=== PATIENT | female | born 1990 | race African-American/Black ===

== ENCOUNTER 2017-12-04 07:37 | Emergency (ER) | payer SELFPAY ==
[~2017-12-04] VITALS: Ht 175.3 cm; Wt 101.0 kg
[~2017-12-04 07:37] MED LIST: Z.0.BCPILL PO
[2017-12-04 07:39] VITALS: BP 128/58; PULSE 73; RESP 16; TEMP 98; O2SAT 100
[2017-12-04] MEDS ORDERED: DEPO150I IM (07:53)
[2017-12-04 08:03] LABS: BILIRUBIN, URINE NEG (NEG); BLOOD, URINE NEG (NEG); GLUCOSE,URINE NEG (NEG); KETONE, URINE NEG (NEG); NITRITE,URINE NEG (NEG); PH, URINE 6.5 (5.0-8.5); URINE COLOR YELLOW (YELLW/STRAW); URINE LEUKOCYTE ESTERASE LARGE (NEG)
[2017-12-04 08:11] LABS: BACTERIA, URINE RARE /hpf; TRICHOMONAS, URINE FEW
[2017-12-04 08:33] LABS: AUTOMATED NEUTROPHIL # 5.5 TH/MM3 (1.8-7.7); BASOPHIL # 0.1 TH/MM3 (0-0.2); BASOPHIL % 0.8 % (0.0-2.0); EOSINOPHIL # 0.1 TH/MM3 (0-0.4); EOSINOPHIL % 0.7 % (0.0-4.0); HEMATOCRIT 28.4 % (35.0-46.0); HEMOGLOBIN 9.7 GM/DL (11.6-15.3); LYMPH % 18.4 % (9.0-44.0); LYMPHOCYTE # 1.4 TH/MM3 (1.0-4.8); MEAN CELL VOLUME 83.8 FL (80.0-100.0); MEAN CORPUSCULAR HEMOGLOBIN 28.7 PG (27.0-34.0); MEAN CORPUSCULAR HGB CONC 34.3 % (32.0-36.0); MEAN PLATELET VOLUME 7.6 FL (7.0-11.0); MONO % 6.9 % (0.0-8.0); MONOCYTE # 0.5 TH/MM3 (0-0.9); NEUT % 73.2 % (16.0-70.0); PLATELET COUNT 296 TH/MM3 (150-450); RED BLOOD COUNT 3.39 MIL/MM3 (4.00-5.30); RED CELL DISTRIBUTION WIDTH 14.2 % (11.6-17.2); WHITE BLOOD COUNT 7.6 TH/MM3 (4.0-11.0)
[2017-12-04 08:45] LABS: CHLORIDE 107 MEQ/L (98-107); SODIUM (NA) 138 MEQ/L (136-145)
[2017-12-04 08:49] LABS: ALBUMIN 3.5 GM/DL (3.4-5.0); BICARBONATE 23.6 MEQ/L (21.0-32.0); CALCIUM 8.8 MG/DL (8.5-10.1); GLUCOSE,RANDOM 110 MG/DL (74-106)
[2017-12-04 08:50] LABS: BLOOD UREA NITROGEN 12 MG/DL (7-18)
[2017-12-04 08:52] LABS: ALT (GPT) 21 U/L (10-53)
[2017-12-04 08:53] LABS: AST (GOT) 16 U/L (15-37); CREATININE 0.72 MG/DL (0.50-1.00); GLOMERULAR FILTRATION RATE 118 ML/MIN (>89)
[2017-12-04 08:54] LABS: TOTAL BILIRUBIN ADULT 0.5 MG/DL (0.2-1.0)
[2017-12-04 08:55] LABS: ALKALINE PHOSPHATASE 55 U/L (45-117)
[2017-12-04] MEDS ORDERED: cefTRIAXone INJ 1,000 MG in SODIUM CHLORIDE 0.9% INJ 100 ML IV ONE (09:15)
[2017-12-04] MEDS ORDERED: METR-1 PO (11:48)
[2017-12-04] MEDS ORDERED: DOXY100C PO (11:48)
--- NOTE | 2017-12-04 11:49 | PD ---
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 She has been having the pain for several days. She has noted some vaginal discharge and odor. She is quite sure she is not . There is been no vomiting or diarrhea. She is generally healthy. PFSH Past Medical History Diabetes: Yes (gestational) Patient Takes Glucophage: No Diminished Hearing: No Immunizations Current: Yes Tetanus Vaccination: Unknown ?: Not LMP: on depo : 1 Para: 1 Social History Alcohol Use: No Tobacco Use: No Substance Use: No Allergies-Medications (Allergen,Severity, Reaction): Coded Allergies: No Known Allergies (Verified Adverse Reaction, Unknown, 12/04/17) Reported Meds & Prescriptions Reported Meds & Active Scripts Active Reported Depo-Provera Inj (Medroxyprogesterone Inj) 150 Mg/Ml Inj 150 Mg IM Q90D Review of Systems General / Constitutional: No: Fever, Chills Eyes: No: Diploplia HENT: No: Headaches, Vertigo Cardiovascular: No: Chest Pain or Discomfort, Palpitations Respiratory: No: Cough, Shortness of Breath Gastrointestinal: Positive: Abdominal Pain, No: Vomiting, Diarrhea Genitourinary: Positive: Discharge Musculoskeletal: No: Myalgias, Arthralgias Skin: No Rash Physical Exam Narrative GENERAL: Well-developed female SKIN: Focused skin assessment warm/dry. HEAD: Atraumatic. Normocephalic. EYES: Pupils equal and round. No scleral icterus. No injection or drainage. ENT: No nasal bleeding or discharge. Mucous membranes pink and moist. NECK: Trachea midline. No JVD. CARDIOVASCULAR: Regular rate and rhythm. No murmur appreciated. RESPIRATORY: No accessory muscle use. Clear to auscultation. Breath sounds equal bilaterally. GASTROINTESTINAL: Abdomen soft, non-tender, nondistended. Hepatic and splenic margins not palpable. Pelvic exam there is moderate amount of whitish vaginal discharge. There is pain with movement of the cervix and bilateral adnexal tenderness MUSCULOSKELETAL: No obvious deformities. No clubbing. No cyanosis. No edema. NEUROLOGICAL: Awake and alert. No obvious cranial nerve deficits. Motor grossly within normal limits. Normal speech. PSYCHIATRIC: Appropriate mood and affect; insight and judgment normal. Data Data Last Documented VS Vital Signs Date Time Temp Pulse Resp B/P (MAP) Pulse Ox O2 Delivery O2 Flow Rate FiO2 12/04/17 07:39 98.0 73 16 128/58 (81) 100 Orders Orders Urinalysis - C+S If Indicated (12/04/17 07:46) Ed Urine Pregnancytest Poc (12/04/17 07:46) Complete Blood Count With Diff (12/04/17 08:00) Comprehensive Metabolic Panel (12/04/17 08:00) Gc And Chlamydia Pcr (12/04/17 08:00) Wet Prep Profile (12/04/17 08:00) Ceftriaxone Inj (Rocephin Inj) (12/04/17 09:15) Urine Culture (12/04/17 07:50) Labs Laboratory Tests Test 12/04/17 07:50 12/04/17 08:13 12/04/17 08:50 Urine Collection Type VOIDED Urine Color YELLOW Urine Turbidity CLEAR Urine pH 6.5 Urine Specific [place] 1.020 Urine Protein NEG mg/dL Urine Glucose (UA) NEG mg/dL Urine Ketones NEG mg/dL Urine Occult Blood NEG Urine Nitrite NEG Urine Bilirubin NEG Urine Urobilinogen 0.2 MG/DL Urine Leukocyte Esterase LARGE Urine WBC 9-14 /hpf Urine Squamous Epithelial Cells 2-4 /hpf Urine Bacteria RARE /hpf Urine Trichomonas FEW Microscopic Urinalysis Comment CULTURE INDICATED White Blood Count 7.6 TH/MM3 Red Blood Count 3.39 MIL/MM3 Hemoglobin 9.7 GM/DL Hematocrit 28.4 % Mean Corpuscular Volume 83.8 FL Mean Corpuscular Hemoglobin 28.7 PG Mean Corpuscular Hemoglobin Concent 34.3 % Red Cell Distribution Width 14.2 % Platelet Count 296 TH/MM3 Mean Platelet Volume 7.6 FL Neutrophils (%) (Auto) 73.2 % Lymphocytes (%) (Auto) 18.4 % Monocytes (%) (Auto) 6.9 % Eosinophils (%) (Auto) 0.7 % Basophils (%) (Auto) 0.8 % Neutrophils # (Auto) 5.5 TH/MM3 Lymphocytes # (Auto) 1.4 TH/MM3 Monocytes # (Auto) 0.5 TH/MM3 Eosinophils # (Auto) 0.1 TH/MM3 Basophils # (Auto) 0.1 TH/MM3 CBC Comment DIFF FINAL Differential Comment Blood Urea Nitrogen 12 MG/DL Creatinine 0.72 MG/DL Random Glucose 110 MG/DL Total Protein 8.0 GM/DL Albumin 3.5 GM/DL Calcium Level 8.8 MG/DL Alkaline Phosphatase 55 U/L Aspartate Amino Transf (AST/SGOT) 16 U/L Alanine Aminotransferase (ALT/SGPT) 21 U/L Total Bilirubin 0.5 MG/DL Sodium Level 138 MEQ/L Potassium Level 3.8 MEQ/L Chloride Level 107 MEQ/L Carbon Dioxide Level 23.6 MEQ/L Anion Gap 7 MEQ/L Estimat Glomerular Filtration Rate 118 ML/MIN Clue Cells (Wet Prep) NONE SEEN Vaginal Trichomonas (Wet Prep) PRESENT Vaginal Yeast (Wet Prep) NONE SEEN MDM Medical Decision Making Medical Screen Exam Complete: Yes Emergency Medical Condition: Yes Medical Record Reviewed: Yes Differential Diagnosis Wet prep is positive for trichomonas. Exam is suspicious for cervicitis. She has been given Rocephin. She will be released with prescriptions for Flagyl and doxycycline Narrative Course Differential includes cervicitis, Trichomonas Diagnosis Primary Impression: Trichomonas vaginalis (TV) infection Scripts Doxycycline Hyclate (Doxycycline Hyclate) 100 Mg Cap 100 MG PO BID for Infection, #20 CAP 0 Refills Prov: Bladimir Reyes MD 12/04/17 Metronidazole (Flagyl) 500 Mg Tab 500 MG PO TID for Infection for 7 Days, TAB 0 Refills Prov: Bladimir Reyes MD 12/04/17 Disposition: 01 DISCHARGE HOME Condition: Stable Bladimir Reyes MD Dec 04, 2017 11:49
== END 2017-12-04 11:55 | disposition home or self-care (01) ==
LOC: PHED 07:37
DX: A59.01 Trichomonal vulvovaginitis (principal); B96.89 Other specified bacterial agents as the cause of diseases classified elsewhere
CPT/HCPCS: 80053; 81001; 84703; 85025; 87086; 87210; 87491; 87591; 96365; 99284; J0696

== ENCOUNTER 2018-01-29 07:07 | Emergency (ER) | payer SELFPAY ==
[~2018-01-29 07:07] MED LIST changes: +DEPO150I IM; +DOXY100C PO; +METR-1 PO; -Z.0.BCPILL PO
[2018-01-29 07:12] VITALS: BP 141/68; PULSE 70; RESP 14; TEMP 98.5; O2SAT 100
[2018-01-29 07:35] VITALS: BP 144/74; PULSE 84; RESP 18; O2SAT 99
[2018-01-29] MEDS ORDERED: SODIUM CHLOR 0.9% 1000 ML INJ 1,000 ML IV SCH (07:40)
[2018-01-29] MEDS ORDERED: SODIUM CHLORIDE 0.9% FLUSH 10 ML FLUSH IV FLUSH PRN (07:45)
[2018-01-29 07:46] VITALS: O2SAT 99
--- NOTE | 2018-01-29 07:47 | PD ---
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 Patient reports that since Sunday (3 days ago) she has been having right lower quadrant abdominal pain with vaginal discharge with associated vaginal odor. Patient reports that pain has been constant and nonradiating in nature. Patient reports that nothing makes pain better or worse, patient denies any fevers or chills, she does report nausea. Patient reports concerns for possible ovarian cyst versus an STD as she was recently sexually active with her baby franki whom she found out cheated on her with another woman. Patient reports no history of an STD in the past. Patient reports that she does feel nauseous, denies any emesis. Patient denies any constipation or diarrhea. Patient with no other complaints at this time. Patient reports that she last had her period in June as she has the Depo shot as her contraceptive [facility] Past Medical History Diabetes: Yes (gestational) Patient Takes Glucophage: No Diminished Hearing: No Immunizations Current: Yes ?: Not : 1 Para: 1 Past Surgical History Cholecystectomy: Yes Social History Alcohol Use: Yes (occassionally) Tobacco Use: No Substance Use: No Allergies-Medications (Allergen,Severity, Reaction): Coded Allergies: No Known Allergies (Verified Adverse Reaction, Unknown, 12/04/17) Reported Meds & Prescriptions Reported Meds & Active Scripts Active Reported Depo-Provera Inj (Medroxyprogesterone Inj) 150 Mg/Ml Inj 150 Mg IM Q90D Review of Systems General / Constitutional: No: Fever Eyes: No: Visual changes HENT: No: Headaches Cardiovascular: No: Chest Pain or Discomfort Respiratory: No: Shortness of Breath Gastrointestinal: Positive: Nausea, Abdominal Pain, No: Vomiting, Constipation Genitourinary: Positive: Pelvic Pain, Discharge, No: Urgency, Frequency, Dysuria, Hematuria Musculoskeletal: No: Pain Skin: No Rash Neurologic: No: Weakness Psychiatric: No: Depression Endocrine: No: Polydipsia Hematologic/Lymphatic: No: Easy Bruising Physical Exam Narrative GENERAL: No acute distress, nontoxic SKIN: Focused skin assessment warm/dry. HEAD: Atraumatic. Normocephalic. EYES: Pupils equal and round. No scleral icterus. No injection or drainage. ENT: No nasal bleeding or discharge. Mucous membranes pink and moist. NECK: Trachea midline. No JVD. CARDIOVASCULAR: Regular rate and rhythm. No murmur appreciated. RESPIRATORY: No accessory muscle use. Clear to auscultation. Breath sounds equal bilaterally. GASTROINTESTINAL: Abdomen soft, mildly tender to right lower quadrant, nondistended. Hepatic and splenic margins not palpable. Exam: performed with RN, patient with green to yellow discharge, no cmt or adnexal tenderness MUSCULOSKELETAL: No obvious deformities. No clubbing. No cyanosis. No edema. NEUROLOGICAL: Awake and alert. No obvious cranial nerve deficits. Motor grossly within normal limits. Normal speech. PSYCHIATRIC: Appropriate mood and affect; insight and judgment normal. Data Data Last Documented VS Vital Signs Date Time Temp Pulse Resp B/P (MAP) Pulse Ox O2 Delivery O2 Flow Rate FiO2 01/29/18 11:21 85 18 124/63 (83) 100 Room Air 01/29/18 07:12 98.5 Orders Orders Gc And Chlamydia Pcr (01/29/18 07:20) Wet Prep Profile (01/29/18 07:20) Urinalysis - C+S If Indicated (01/29/18 07:20) Ed Urine Pregnancytest Poc (01/29/18 07:20) Complete Blood Count With Diff (01/29/18 07:40) Comprehensive Metabolic Panel (01/29/18 07:40) Iv Access Insert/Monitor (01/29/18 07:40) Ecg Monitoring (01/29/18 07:40) Oximetry (01/29/18 07:40) Sodium Chlor 0.9% 1000 Ml Inj (Ns 1000 M (01/29/18 07:40) Sodium Chloride 0.9% Flush (Ns Flush) (01/29/18 07:45) Us Pelvis Comp W Dop Transvag (01/29/18 ) Urine Culture (01/29/18 07:40) Ceftriaxone Inj (Rocephin Inj) (01/29/18 10:00) Azithromycin (Zithromax) (01/29/18 12:00) Metronidazole (Flagyl) (01/29/18 13:00) Labs Laboratory Tests Test 01/29/18 07:40 6/5/18 07:50 01/29/18 11:46 Urine Color YELLOW Urine Turbidity HAZY Urine pH 6.5 Urine Specific [place] 1.017 Urine Protein TRACE mg/dL Urine Glucose (UA) NEG mg/dL Urine Ketones NEG mg/dL Urine Occult Blood SMALL Urine Nitrite NEG Urine Bilirubin NEG Urine Urobilinogen LESS THAN 2.0 MG/DL Urine Leukocyte Esterase LARGE Urine RBC 19 /hpf Urine WBC 43 /hpf Urine Squamous Epithelial Cells 7 /hpf Urine Bacteria FEW /hpf Urine Mucus FEW /lpf Microscopic Urinalysis Comment CULTURE INDICATED White Blood Count 6.6 TH/MM3 Red Blood Count 4.11 MIL/MM3 Hemoglobin 11.4 GM/DL Hematocrit 34.5 % Mean Corpuscular Volume 84.1 FL Mean Corpuscular Hemoglobin 27.7 PG Mean Corpuscular Hemoglobin Concent 33.0 % Red Cell Distribution Width 15.6 % Platelet Count 308 TH/MM3 Mean Platelet Volume 8.1 FL Neutrophils (%) (Auto) 68.4 % Lymphocytes (%) (Auto) 19.5 % Monocytes (%) (Auto) 10.8 % Eosinophils (%) (Auto) 0.7 % Basophils (%) (Auto) 0.6 % Neutrophils # (Auto) 4.5 TH/MM3 Lymphocytes # (Auto) 1.3 TH/MM3 Monocytes # (Auto) 0.7 TH/MM3 Eosinophils # (Auto) 0.0 TH/MM3 Basophils # (Auto) 0.0 TH/MM3 CBC Comment DIFF FINAL Differential Comment Blood Urea Nitrogen 9 MG/DL Creatinine 0.82 MG/DL Random Glucose 102 MG/DL Total Protein 8.6 GM/DL Albumin 4.2 GM/DL Calcium Level 9.1 MG/DL Alkaline Phosphatase 58 U/L Aspartate Amino Transf (AST/SGOT) 14 U/L Alanine Aminotransferase (ALT/SGPT) 21 U/L Total Bilirubin 0.6 MG/DL Sodium Level 138 MEQ/L Potassium Level 3.5 MEQ/L Chloride Level 105 MEQ/L Carbon Dioxide Level 20.2 MEQ/L Anion Gap 13 MEQ/L Estimat Glomerular Filtration Rate 102 ML/MIN Clue Cells (Wet Prep) NONE SEEN Vaginal Trichomonas (Wet Prep) PRESENT Vaginal Yeast (Wet Prep) NONE SEEN MDM Medical Decision Making Medical Screen Exam Complete: Yes Emergency Medical Condition: Yes Medical Record Reviewed: Yes Interpretation(s) Vital Signs Date Time Temp Pulse Resp B/P (MAP) Pulse Ox O2 Delivery O2 Flow Rate FiO2 01/29/18 07:35 84 18 144/74 (97) 99 Room Air 01/29/18 07:12 98.5 70 14 141/68 (92) 100 Differential Diagnosis Cervicitis, appendicitis, diverticulitis, colitis, ovarian cyst, ovarian torsion , PID, UTI, BV Narrative Course Patient is a 27-year-old female who presents the emergency room with complaints of right lower quadrant abdominal pain which has been ongoing and unrelenting since Sunday. Patient also endorses that she has noticed vaginal discharge with a foul odor -reports concerns for possible STD given that her baby daddy cheated on her. Patient with no history of STD's in the past. During the course of the patients emergency department visit, the patients history, examination, and differential diagnosis were reviewed with the patient. The patient was placed on a satellite project site monitor with oximetry and frequent blood pressure monitoring. The patient had an IV access obtained and blood work sent for analysis. The patient was initially provided IVF The patients laboratory studies were reviewed and remarkable for Laboratory Tests Test 01/29/18 07:40 01/29/18 07:50 01/29/18 11:46 Urine Color YELLOW (YELLW/STRAW) Urine Turbidity HAZY (CLEAR) Urine pH 6.5 (5.0-8.5) Urine Specific [place] 1.017 (1.002-1.035) Urine Protein TRACE mg/dL (NEG-TRACE) Urine Glucose (UA) NEG mg/dL (NEG) Urine Ketones NEG mg/dL (NEG) Urine Occult Blood SMALL (NEG) Urine Nitrite NEG (NEG) Urine Bilirubin NEG (NEG) Urine Urobilinogen LESS THAN 2.0 MG/DL (LESS Urine Leukocyte Esterase LARGE (NEG) Urine RBC 19 /hpf (0-3) Urine WBC 43 /hpf (0-5) Urine Squamous Epithelial Cells 7 /hpf (0-5) Urine Bacteria FEW /hpf (NONE) Urine Mucus FEW /lpf (OCC) Microscopic Urinalysis Comment CULTURE INDICATED White Blood Count 6.6 TH/MM3 (4.0-11.0) Red Blood Count 4.11 MIL/MM3 (4.00-5.30) Hemoglobin 11.4 GM/DL (11.6-15.3) Hematocrit 34.5 % (35.0-46.0) Mean Corpuscular Volume 84.1 FL (80.0-100.0) Mean Corpuscular Hemoglobin 27.7 PG (27.0-34.0) Mean Corpuscular Hemoglobin Concent 33.0 % (32.0-36.0) Red Cell Distribution Width 15.6 % (11.6-17.2) Platelet Count 308 TH/MM3 (150-450) Mean Platelet Volume 8.1 FL (7.0-11.0) Neutrophils (%) (Auto) 68.4 % (16.0-70.0) Lymphocytes (%) (Auto) 19.5 % (9.0-44.0) Monocytes (%) (Auto) 10.8 % (0.0-8.0) Eosinophils (%) (Auto) 0.7 % (0.0-4.0) Basophils (%) (Auto) 0.6 % (0.0-2.0) Neutrophils # (Auto) 4.5 TH/MM3 (1.8-7.7) Lymphocytes # (Auto) 1.3 TH/MM3 (1.0-4.8) Monocytes # (Auto) 0.7 TH/MM3 (0-0.9) Eosinophils # (Auto) 0.0 TH/MM3 (0-0.4) Basophils # (Auto) 0.0 TH/MM3 (0-0.2) CBC Comment DIFF FINAL Differential Comment Blood Urea Nitrogen 9 MG/DL (7-18) Creatinine 0.82 MG/DL (0.50-1.00) Random Glucose 102 MG/DL (74-106) Total Protein 8.6 GM/DL (6.4-8.2) Albumin 4.2 GM/DL (3.4-5.0) Calcium Level 9.1 MG/DL (8.5-10.1) Alkaline Phosphatase 58 U/L (45-117) Aspartate Amino Transf (AST/SGOT) 14 U/L (15-37) Alanine Aminotransferase (ALT/SGPT) 21 U/L (10-53) Total Bilirubin 0.6 MG/DL (0.2-1.0) Sodium Level 138 MEQ/L (136-145) Potassium Level 3.5 MEQ/L (3.5-5.1) Chloride Level 105 MEQ/L (98-107) Carbon Dioxide Level 20.2 MEQ/L (21.0-32.0) Anion Gap 13 MEQ/L (5-15) Estimat Glomerular Filtration Rate 102 ML/MIN (>89) Clue Cells (Wet Prep) NONE SEEN (NONE) Vaginal Trichomonas (Wet Prep) PRESENT (NONE) Vaginal Yeast (Wet Prep) NONE SEEN (NONE) Radiology studies were reviewed and remarkable for Last Impressions Abdomen/Pelvis/Transvag US 01/29/18 0000 Signed Impressions: CONCLUSION: Normal pelvic ultrasound. Patient with no pelvic pain on exam, she does have uriel discharge. Patient was treated for possible gonorrhea/chlamydia, her Trichomonas is positive, patient was given a 2 g dose of Flagyl while in the emergency room. Patient's symptoms are most likely secondary to PID, she has been given 1 g of Rocephin in the emergency room as well as azithromycin orally, will continue doxycycline as an outpatient. She will follow-up with all cultures from today (G/C)- understands that all sexual partners will need to be treated for trich at this time. Diagnosis Primary Impression: PID (acute pelvic inflammatory disease) Additional Impressions: Infection due to trichomonas UTI (urinary tract infection) Patient Instructions: General Instructions Additional Instructions: Please provide patient with a copy of their lab work and studies at discharge* * Please follow up with your primary care doctor in 2-3 days Return to the ER if symptoms worsen or progress Return to the ER as needed Please follow-up with all cultures from today, if cultures are positive, all sexual partners will be treated. Your positive for trichomonas today, please make sure that all sexual partners are treated for this sexually transmitted disease. Med/Other Pt SpecificInfo: Prescription(s) given Scripts Doxycycline Hyclate (Doxycycline Hyclate) 100 Mg Cap 100 MG PO BID for Infection for 14 Days, #28 CAP 0 Refills Prov: Aliyah Jackson DO 01/29/18 Disposition: 01 DISCHARGE HOME Condition: Stable Aliyah Jackson DO Jan 29, 2018 07:47
[2018-01-29 08:41] LABS: AUTOMATED NEUTROPHIL # 4.5 TH/MM3 (1.8-7.7); BASOPHIL % 0.6 % (0.0-2.0); EOSINOPHIL % 0.7 % (0.0-4.0); HEMATOCRIT 34.5 % (35.0-46.0); HEMOGLOBIN 11.4 GM/DL (11.6-15.3); LYMPH % 19.5 % (9.0-44.0); LYMPHOCYTE # 1.3 TH/MM3 (1.0-4.8); MEAN CELL VOLUME 84.1 FL (80.0-100.0); MEAN CORPUSCULAR HEMOGLOBIN 27.7 PG (27.0-34.0); MEAN PLATELET VOLUME 8.1 FL (7.0-11.0); MONO % 10.8 % (0.0-8.0); MONOCYTE # 0.7 TH/MM3 (0-0.9); NEUT % 68.4 % (16.0-70.0); PLATELET COUNT 308 TH/MM3 (150-450); RED BLOOD COUNT 4.11 MIL/MM3 (4.00-5.30); RED CELL DISTRIBUTION WIDTH 15.6 % (11.6-17.2); WHITE BLOOD COUNT 6.6 TH/MM3 (4.0-11.0)
--- NOTE | 2018-01-29 08:59 | RADRPT ---
EXAM DATE: 01/29/2018 8:39 AM EDT AGE/SEX: 27 years / Female INDICATIONS: Right lower quadrant abdominal pain. CLINICAL DATA: This is the patient's initial encounter. Patient reports that signs and symptoms have been present for 3 days and indicates a pain score of 7/10. MEDICAL/SURGICAL HISTORY: Diabetes. Cholecystectomy. COMPARISON: No prior [facility] exams available for comparison. [facility], US abdomen comp janet, 10/12/2014. MEASUREMENTS: Uterus:__7.4 x 3.8 x 5.3 cm Endometrial Stripe:__12 mm Right Ovary:__ 2.9 x 1.3 x 2.1 cm Left Ovary:__ 2.8 x 1.6 x 2.4 cm FINDINGS: Uterus: Myometrium demonstrates homogeneous echotexture without mass. Endometrium is within normal l imits. Right Ovary: Follicles are present. No concerning cystic or solid mass is present. Left Ovary: Follicles are present. No concerning cystic or solid mass is present. Other: No free fluid. CONCLUSION: Normal pelvic ultrasound. Electronically signed by: Zach Talamantes MD 01/29/2018 8:58 AM EDT
[2018-01-29 09:00] LABS: BACTERIA, URINE FEW /hpf; BILIRUBIN, URINE NEG (NEG); BLOOD, URINE SMALL (NEG); GLUCOSE,URINE NEG (NEG); KETONE, URINE NEG (NEG); MUCUS URINE FEW /lpf (OCC); NITRITE,URINE NEG (NEG); PH, URINE 6.5 (5.0-8.5); SQUAMOUS EPITHELIAL CELL URINE 7 /hpf (0-5); URINE COLOR YELLOW (YELLW/STRAW); URINE LEUKOCYTE ESTERASE LARGE (NEG)
[2018-01-29 09:10] LABS: ALBUMIN 4.2 GM/DL (3.4-5.0); AST (GOT) 14 U/L (15-37); BICARBONATE 20.2 MEQ/L (21.0-32.0); BLOOD UREA NITROGEN 9 MG/DL (7-18); CALCIUM 9.1 MG/DL (8.5-10.1); CHLORIDE 105 MEQ/L (98-107); CREATININE 0.82 MG/DL (0.50-1.00); GLOMERULAR FILTRATION RATE 102 ML/MIN (>89); GLUCOSE,RANDOM 102 MG/DL (74-106); SODIUM (NA) 138 MEQ/L (136-145)
[2018-01-29 09:11] LABS: ALT (GPT) 21 U/L (10-53)
[2018-01-29 09:13] LABS: ALKALINE PHOSPHATASE 58 U/L (45-117); TOTAL BILIRUBIN ADULT 0.6 MG/DL (0.2-1.0); TOTAL PROTEIN 8.6 GM/DL (6.4-8.2)
[2018-01-29 09:51] VITALS: BP 110/59; PULSE 80; RESP 16; O2SAT 100
[2018-01-29] MEDS ORDERED: cefTRIAXone INJ 1,000 MG in SODIUM CHLORIDE 0.9% INJ 100 ML IV ONE (10:00)
[2018-01-29 11:21] VITALS: BP 124/63; PULSE 85; RESP 18; O2SAT 100
[2018-01-29] MEDS ORDERED: AZITHROMYCIN 250 MG TAB PO ONE (12:00)
[2018-01-29] MEDS ORDERED: DOXY100C PO (12:55)
[2018-01-29] MEDS ORDERED: metroNIDAZOLE 500 MG TAB PO ONE (13:00)
[2018-01-29 13:07] VITALS: BP 127/66
== END 2018-01-29 13:08 | disposition home or self-care (01) ==
LOC: NEPC 07:07
DX: N73.0 Acute parametritis and pelvic cellulitis (principal); A59.01 Trichomonal vulvovaginitis; N39.0 Urinary tract infection, site not specified
CPT/HCPCS: 76830; 76856; 80053; 81001; 84703; 85025; 87086; 87210; 87491; 87591; 93975; 96361; 96365; 99284; J0696; J7030